=== PATIENT | male | born 1980 | race Caucasian/White ===

== ENCOUNTER → 2017-02-11 | Outpatient (CLI) | payer OTHER ==
--- NOTE | 2017-02-11 11:16 | MR ---
MR lumbar spine wo/w con low back pain MultiHance Multiplanar, multiecho imaging of the lumbar spine was obtained without contrast on a 3 Emilee magnet. REFERENCE: Report but no images of the previous study dated 11/14/2005. FINDINGS: Paraspinal soft tissues are normal. Vertebral body height and alignment are maintained. Cord signal is maintained. The conus ends normall y at the level of the superior endplate of L2. From T12-L1 through to L2-3, no definite abnormality is seen. At L3-4, there is mild capsulitis within the facets. At L4-5, there is disc space loss and disc desiccation. There is a diffuse disc displacement. The int ervertebral foramina are well maintained. There is mild hypertrophic change and capsulitis in the fac ets. At L5-S1, there is severe disc space loss. There is a broad-based disc protrusion extending into the intervertebral foramina bilaterally causing mild, bilateral intervertebral foraminal narrowing, great er on the right than the left. There is minimal capsulitis within the facets. IMPRESSION: 1. DEGENERATIVE DISC DISEASE, L4-5 AND L5-S1. 2. FACET ARTHROPATHY, L4-5 AND L5-S1. 3. MILD, BILATERAL INTERVERTEBRAL FORAMINAL NARROWING, L5-S1. 4. BROAD-BASED DISC PROTRUSION, L5-S1 WITHOUT DEFINITE NEURAL COMPRESSION.
== END | disposition home or self-care (01) ==
LOC: RADMRIMAIN 10:01
PROVIDERS: ATTEND Physician Assistant
DX: M99.73 Connective tissue and disc stenosis of intervertebral foramina of lumbar region (principal); M51.27 Other intervertebral disc displacement, lumbosacral region; M51.37 Other intervertebral disc degeneration, lumbosacral region; M46.97 Unspecified inflammatory spondylopathy, lumbosacral region
CPT/HCPCS: 72158; A9577

== ENCOUNTER 2017-07-11 14:23 | Emergency (ER) | payer OTHER ==
[2017-07-11] MEDS ORDERED: ONDANSETRON 4 MG/2 ML VIAL IVP STA (15:01)
[2017-07-11] MEDS ORDERED: SODIUM CHLORIDE 0.9% 1,000 ML IV STA (15:01)
[2017-07-11] MEDS ORDERED: HYDROmorphone 1 MG/ML 1 ML SYRINGE IVP STA (15:01)
--- NOTE | 2017-07-11 15:06 | ED ---
General Adult HPI - General Chief complaint: Nausea/Vomiting/Diarrhea Stated complaint: lumbar fusion pain Time Seen by Provider: 07/11/17 14:37 Source: patient, RN notes reviewed Mode of arrival: ambulatory Limitations: no limitations - History of Present Illness Initial comments: Patient 36-year-old male status post spinal fusion 4 days, who presents emergency room today with a chief complaint of symptoms of nausea vomiting and pain over the last 4 days. Does admit that he's also noticed some drainage coming from the incision site over the past 4 days. They admit to feeling nauseated. States had an episode of vomiting today. States that as of numbness tingling right lower leg. States this is same symptoms and is expressing prior to surgery. He denies any bowel or bladder incontinence or retention. He denies any saddle anesthesia. Patient denies any recent fever, chills, shortness of breath, chest pain, abdominal pain, nausea or vomiting, numbness or tingling, dysuria or hematuria, constipation or diarrhea, headaches or visual changes, or any other complaints. - Related Data Home Medications Medication Instructions Recorded Confirmed Acetaminophen Tab [Tylenol Tab] 325 mg PO ONCE PRN 07/11/17 07/11/17 Cyclobenzaprine [Flexeril] 10 mg PO TID 07/11/17 07/11/17 Diazepam [Valium] 5 mg PO QID PRN 07/11/17 07/11/17 Morphine Sulfate ER [Ms Contin 30 mg PO Q8H 07/11/17 07/11/17 30Mg] Morphine Sulfate Ir [Msir] 15 - 30 mg PO TID PRN 07/11/17 07/11/17 hydrOXYzine HCL 25 mg PO BID 07/11/17 07/11/17 Previous Rx's Medication Instructions Recorded oxyCODONE-APAP 10-325MG [Percocet 10 mg PO Q6H PRN #120 tab 03/04/15 10-325 mg] Ondansetron Odt [Zofran ODT] 4 mg PO Q8HR PRN #20 tab 07/11/17 Allergies Allergy/AdvReac Type Severity Reaction Status Date / Time No Known Allergies Allergy Verified 07/11/17 14:46 Review of Systems ROS Statement: Those systems with pertinent positive or pertinent negative responses have been documented in the HPI. ROS Other: All systems not noted in ROS Statement are negative. Past Medical History Past Medical History: Musculoskeletal Disorder, Seizure Disorder Additional Past Medical History / Comment(s): Post traumatic stress disorder, STATES SEIZURES ARE BEHIND THE EYES -NO MEDS FOR THIS , DDD-BACK PAIN. History of Any Multi-Drug Resistant Organisms: None Reported Past Surgical History: No Surgical Hx Reported Additional Past Surgical History / Comment(s): PAIN CLINIC PROCEDURES Past Anesthesia/Blood Transfusion Reactions: No Reported Reaction Past Psychological History: PTSD Smoking Status: Heavy tobacco smoker Past Alcohol Use History: None Reported Past Drug Use History: None Reported - Past Family History Mother Family Medical History: Cancer General Exam - General Exam Comments Initial Comments: General: The patient is awake and alert, in no distress, and does not appear acutely ill. Eye: Pupils are equal, round and reactive to light, extra-ocular movements are intact. No nystagmus. There is normal conjunctiva bilaterally. No signs of icterus. Ears, nose, mouth and throat: There are moist mucous membranes and no oral lesions. Neck: The neck is supple, there is no tenderness or JVD. Cardiovascular: There is a regular rate and rhythm. No murmur, rub or gallop is appreciated. Respiratory: Lungs are clear to auscultation, respirations are non-labored, breath sounds are equal. No wheezes, stridor, rales, or rhonchi. Gastrointestinal: Soft, non-distended, non-tender abdomen without masses or organomegaly noted. There is no rebound or guarding present. No CVA tenderness. Bowel sounds are unremarkable. Musculoskeletal: Patient shows good range of motion. Sensation intact to light touch bilaterally. He does admit that it feels somewhat numb. Pulses equal bilaterally 2+. Strength 5/5. Pulses equal bilaterally 2+. Neurological: A&O x 3. CN II-XII intact, There are no obvious motor or sensory deficits. Coordination appears grossly intact. Speech is normal. Skin: Incision site seems to be healing well. No redness or swelling. There is a serous sanguinous type drainage on the dressing but none coming from the incision site at this time. Psychiatric: Cooperative, appropriate mood & affect, normal judgment. Limitations: no limitations Course Vital Signs 07/11/17 07/11/17 14:31 17:12 Temperature 98.4 F 98.3 F Pulse Rate 98 97 Respiratory 18 16 Rate Blood Pressure 129/77 126/73 O2 Sat by Pulse 100 100 Oximetry Medical Decision Making - Medical Decision Making Case discussed in detail with attending physician Dr. Valderrama. Patient reexamined at this time shows no signs of distress resting comfortably. Patient labs reviewed are unremarkable. No sign of infection. No fever. Patient denies any new complaints of numbness or tingling to the lower extremities. States this is from prior to the surgery. Patient will be discharged home advised follow-up with his surgeon tomorrow. Advised return if any symptoms increase or worsen or for any other concerns. Plan discussed with the patient is states understanding and is in agreement. - Lab Data Result diagrams: 07/11/17 15:14 07/11/17 15:14 Lab Results 07/11/17 07/11/17 07/11/17 Range/Units 15:14 15:14 16:50 WBC 10.4 (3.8-10.6) k/uL RBC 3.92 L (4.30-5.90) m/uL Hgb 12.7 L (13.0-17.5) gm/dL Hct 36.4 L (39.0-53.0) % MCV 92.7 (80.0-100.0) fL MCH 32.5 (25.0-35.0) pg MCHC 35.0 (31.0-37.0) g/dL RDW 12.7 (11.5-15.5) % Plt Count 234 (150-450) k/uL Neutrophils % 66 % Lymphocytes % 23 % Monocytes % 7 % Eosinophils % 1 % Basophils % 1 % Neutrophils # 6.9 (1.3-7.7) k/uL Lymphocytes # 2.4 (1.0-4.8) k/uL Monocytes # 0.7 (0-1.0) k/uL Eosinophils # 0.2 (0-0.7) k/uL Basophils # 0.1 (0-0.2) k/uL Sodium 138 (137-145) mmol/L Potassium 3.6 (3.5-5.1) mmol/L Chloride 100 (98-107) mmol/L Carbon Dioxide 28 (22-30) mmol/L Anion Gap 10 mmol/L BUN 8 L (9-20) mg/dL Creatinine 0.72 (0.66-1.25) mg/dL Est GFR (MDRD) Af Amer >60 (>60 ml/min/1.73 sqM) Est GFR (MDRD) Non-Af >60 (>60 ml/min/1.73 sqM) Glucose 103 H (74-99) mg/dL Calcium 9.0 (8.4-10.2) mg/dL Total Bilirubin 0.9 (0.2-1.3) mg/dL AST 21 (17-59) U/L ALT 34 (21-72) U/L Alkaline Phosphatase 60 (38-126) U/L Total Protein 6.2 L (6.3-8.2) g/dL Albumin 3.8 (3.5-5.0) g/dL Urine Color Yellow Urine Appearance Clear (Clear) Urine pH 5.5 (5.0-8.0) Ur Specific [place] 1.006 (1.001-1.035) Urine Protein Negative (Negative) Urine Glucose (UA) Negative (Negative) Urine Ketones Negative (Negative) Urine Blood Negative (Negative) Urine Nitrite Negative (Negative) Urine Bilirubin Negative (Negative) Urine Urobilinogen <2.0 (<2.0) mg/dL Ur Leukocyte Esterase Negative (Negative) Disposition Clinical Impression: Postop check Disposition: HOME SELF-CARE Condition: Good Instructions: Acute Nausea and Vomiting (ED) Additional Instructions: Please use medication as discussed. Please follow-up with her surgeon tomorrow. Please return to emergency room if the symptoms increase or worsen or for any other concerns. Prescriptions: Ondansetron Odt [Zofran ODT] 4 mg PO Q8HR PRN #20 tab PRN Reason: Nausea Referrals: Eris Martell DO [Primary Care Provider] - 1-2 days Sylvain Alvarez MD [REFERRING] - 1-2 days Time of Disposition: 17:22
[2017-07-11 15:26] LABS: Basophils # (A) 0.1 k/uL (0-0.2); Basophils % (A) 1 %; CHCM 36.8; Eosinophils # (A) 0.2 k/uL (0-0.7); Eosinophils % (A) 1 %; HCT 36.4 % (39.0-53.0); HGB 12.7 gm/dL (13.0-17.5); Luc % (Auto) 2; Lymphocytes # (A) 2.4 k/uL (1.0-4.8); Lymphocytes % (A) 23 %; MCH 32.5 pg (25.0-35.0); MCV 92.7 fL (80.0-100.0); Mean Platelet Volume 8.2; Monocytes # (A) 0.7 k/uL (0-1.0); Monocytes % (A) 7 %; Neutrophils # (A) 6.9 k/uL (1.3-7.7); Neutrophils % (A) 66 %; RBC 3.92 m/uL (4.30-5.90); RDW 12.7 % (11.5-15.5); WBC 10.4 k/uL (3.8-10.6); WBC (Perox) 10.36
[2017-07-11 15:37] LABS: ALT 34 U/L (21-72); AST 21 U/L (17-59); Alkaline Phosphatase 60 U/L (38-126); Anion Gap 10 mmol/L; Blood Urea Nitrogen 8 mg/dL (9-20); Carbon Dioxide 28 mmol/L (22-30); Chloride 100 mmol/L (98-107); Glucose 103 mg/dL (74-99); Non-African American GFR(MDRD) >60 (>60 ml/min/1.73 sqM); Potassium 3.6 mmol/L (3.5-5.1); Sodium 138 mmol/L (137-145); Total Bilirubin 0.9 mg/dL (0.2-1.3); Total Protein 6.2 g/dL (6.3-8.2)
[2017-07-11 16:57] LABS: Appearance,Urine Clear (Clear); Bilirubin,Urine Negative (Negative); Glucose,Urine (UA) Negative (Negative); Ketones,Urine Negative (Negative); Leukocyte Esterase,Urine Negative (Negative); Nitrite,Urine Negative (Negative); PH, Urine 5.5 (5.0-8.0); Protein,Urine Negative (Negative); Specific Gravity,Urine 1.006 (1.001-1.035); UA Billing (MACRO vs. MICRO) CHEM; Urobilinogen,Urine <2.0 mg/dL (<2.0)
[2017-07-11 17:14] VITALS: BP 126/73; PULSE 97; RESP 16; TEMP 98.3
[2017-07-11] MEDS ORDERED: MORPHINE SULFATE 4 MG/ML SYRINGE IV STA (17:39)
== END 2017-07-11 17:49 | disposition home or self-care (01) ==
LOC: EC 14:23
DX: Z47.89 Encounter for other orthopedic aftercare (principal); R11.2 Nausea with vomiting, unspecified; M54.5 Low back pain; R20.0 Anesthesia of skin; R20.2 Paresthesia of skin; F17.200 Nicotine dependence, unspecified, uncomplicated; Z79.891 Long term (current) use of opiate analgesic; Z79.899 Other long term (current) drug therapy
CPT/HCPCS: 99283 ×2; 96374 ×2; 96375 ×3; 96361 ×2; 36415; 80053; 85025; 81003; 87040; J2270; J2405; J1170

== ENCOUNTER → 2018-03-15 | Outpatient (CLI) | payer OTHER ==
--- NOTE | 2018-03-15 11:51 | MR ---
EXAMINATION TYPE: MR lumbar spine wo/w con DATE OF EXAM: 03/15/2018 11:25 AM COMPARISON: 02/11/2017 HISTORY: Chronic Grey Low Back Pain With Grey Sciatica CONTRAST: The patient was injected with 7.5 mL intravenous Gadavist gadolinium contrast. Multiplanar, MultiSpin echo imaging of the lumbar spine was performed. L1-L2: Normal disc appearance without desiccation. No herniation, protrusion or disc bulging. No ca nal stenosis is present. Foramina are patent bilaterally. L2-L3: Normal disc appearance without desiccation. No herniation, protrusion or disc bulging. No ca nal stenosis is present. Foramina are patent bilaterally. L3-L4: Normal disc appearance without desiccation. No herniation, protrusion or disc bulging. No ca nal stenosis is present. Foramina are patent bilaterally. L4-L5: Moderate disc desiccation. Right paracentral mild disc protrusion results in mild effacement v entral thecal sac. Mild right foraminal encroachment. No evidence for central stenosis. L5-S1: Interval postoperative change with intervertebral body spacer and resultant artifact. Spacer a ppears to extend beyond the posterior margin of the disc space. There may be result in left lateral r ecess stenosis. Correlate clinically. Lumbar segments are intact. No paraspinal masses are identified. Conus medullaris has a normal appe arance. No pathologic enhancement. IMPRESSION: 1. Postoperative changes at L5-S1. Intervertebral spacer appears to extend beyond the confines of the posterior disc space posterocentrally and towards the left. There may be resultant left lateral rece ss stenosis. Artifact limits evaluation. 2. Mild disc protrusion L4-5 as discussed.
== END | disposition home or self-care (01) ==
LOC: RADMRIMAIN 10:38
PROVIDERS: ATTEND Orthopaedic Surgery
DX: M51.16 Intervertebral disc disorders with radiculopathy, lumbar region (principal); Z98.890 Other specified postprocedural states
CPT/HCPCS: 72158; A9581

== ENCOUNTER → 2018-03-22 | Day surgery (SDC) | payer OTHER ==
[~2018-03-22] MED LIST: DIAZEPAM 5 MG TAB PO STA; MORPHINE SULFATE IR 15 MG TABLET PO ONE; PREMYELOGRAM MEDICATION REVIEW 1 EACH MISC PO NR
[2018-03-22 08:40] VITALS: TEMP 98.2
[2018-03-22 09:23] VITALS: RESP 16
--- NOTE | 2018-03-22 11:04 | CT ---
EXAMINATION TYPE: CT lumbar myelogram DATE OF EXAM: 03/22/2018 COMPARISON: MRI 03/15/2018 HISTORY: 37-year-old male Lumbago with sciatica TECHNIQUE: Contiguous axial scanning of the lumbar spine performed after administration of intratheca l contrast. Please refer to myelogram injection report of the same day for further details. Coronal/s agittal reconstructions performed. CT DLP: 917 mGycm Automated exposure control for dose reduction was used. FINDINGS: No prevertebral or paravertebral soft tissue abnormality seen. Diffuse disc bulge at L4-L5 causing minimal bilateral inferior neuroforaminal narrowing. No significa nt spinal canal stenosis. Conus medullaris terminates at L1-L2. Vertebral body heights are preserved and alignment is maintaine d. Interbody device is present at L5-S1. No periprosthetic lucency. The device only minimally projects b ehind the posterior vertebral body margin by a millimeter or 2. No james retropulsion into the spinal canal. Eccentric left-sided positioning may be due to surgical technique. The interbody device does not abut the traversing left S1 nerve root or extend into the lateral recess. There are corresponding laminectomies at L5 and S1. From T12 through L4 levels, no significant spinal canal or neuroforaminal stenosis. At L4-L5, minimal inferior foraminal narrowing on both sides secondary to bulging disc. Prominent pos terior annular fissure was noted on the 03/15/2018 MRI. At L5-S1, there are moderate bilateral neuroforaminal stenoses with endplate spurring abutting the ex iting L5 nerve roots on both sides. No prevertebral or paravertebral soft tissue abnormality seen. IMPRESSION: 1. L5-S1 INTERBODY FUSION DEVICE. Slight eccentric leftward positioning is suspected to be due to horacio gical technique. The device projects only minimally behind the posterior vertebral body margin by a m illimeter or two. No james retropulsion. No significant periprosthetic lucency to suggest loosening. The device does not impinge any of the exiting or traversing nerve roots. 2. Endplate spurring at L5-S1 contributes to moderate bilateral neuroforaminal stenosis with bony spu rs abutting the exiting L5 nerve roots. 3. Diffuse disc bulge at L4-L5. A prominent posterior annular fissure was better seen on the patient' s recent MRI. The disc bulge contributes to minimal bilateral inferior foraminal narrowing. 4. No canal compromise. The remaining levels appear satisfactory.
--- NOTE | 2018-03-22 11:11 | FL ---
PROCEDURE: Lumbar puncture. DATE: 03/22/2018 CLINICAL HISTORY: 37-year-old male with lumbago and sciatica. Patient with lumbar fusion surgery in [facility] 2017. Long history of lumbar pain after injury in the service. COMPLICATIONS: None SEDATION: 10 mg oral Valium. The patient and the patient's vital signs were monitored by qualified independent radiology personnel. TECHNIQUE: The procedure and potential risks were explained to patient and an informed consent was obtained with teach back. Site and side was verified. A time out was performed. Fluoroscopy time: 53 seconds Total images: 8 The patient was placed prone on the fluoroscopy table and the L3-L4 level was localized and the skin was marked and was prepped and draped in the usual sterile fashion. Lidocaine was used for local anesthesia. Utilizing fluoroscopic guidance a 22-gauge spinal needle was placed through the skin and into the subarachnoid space. Clear CSF was visualized through the needle hub. Following this, 10 mL of Omnipaque 240 was injected into the thecal sac without difficulty. The needle was withdrawn, hemostasis obtained, and a dressing placed. There is free movement of contrast within the thecal sac. There is L5 laminectomy changes as well as an L5-S1 interbody device. The patient tolerated the procedure well and was sent for the CT portion of the exam. The estimated blood loss was minimal. The patient's condition was unchanged following the procedure. IMPRESSION: Successful lumbar puncture for CT myelogram.
[2018-03-22 13:32] VITALS: BP 128/80; PULSE 78
== END ==
LOC: RADPROMAIN 08:00
PROVIDERS: ATTEND Orthopaedic Surgery
DX: M54.42 Lumbago with sciatica, left side (principal); M54.41 Lumbago with sciatica, right side; Z98.1 Arthrodesis status
CPT/HCPCS: 62304; 72132; Q9966

== ENCOUNTER 2018-04-07 09:14 | Emergency (ER) | payer OTHER ==
[2018-04-07 09:30] VITALS: TEMP 98.1
[2018-04-07] MEDS ORDERED: PROPARACAINE 0.5% OPHTH DROPS 15 ML BTL BOTH EYES STA (09:39)
--- NOTE | 2018-04-07 10:31 | ED ---
Eye Problem HPI - General Chief complaint: Eye Problems Stated complaint: FB in eye Time Seen by Provider: 04/07/18 09:38 Source: patient, RN notes reviewed, old records reviewed Mode of arrival: ambulatory Limitations: no limitations - History of Present Illness Initial comments: This is a 37-year-old male presents emergency room chief complaint of foreign body of the left eye. He reports that he was in urgent care yesterday and diagnosed with a sinus infection. He reports he is placed on antibiotics. He states that he thinks that he may have recent hair or something within his eye today. He states he woke up and is a sharp pain at the 11 o'clock position. Patient reports that he has had no change in visual acuity. No pain with extraocular eye movements. Denies any eye pain or swelling. He reports that his eyes had an external upper eyelid hordeolum. He is followed up with ophthalmology regards to this in the past. - Related Data Home Medications Medication Instructions Recorded Confirmed Cyclobenzaprine [Flexeril] 10 mg PO TID 07/11/17 04/07/18 Morphine Sulfate Ir [Msir] 15 mg PO TID PRN 07/11/17 04/07/18 Gabapentin 600 mg PO TID 03/22/18 04/07/18 Amoxic-Pot Clav 875-125Mg 1 tab PO Q12HR 04/07/18 04/07/18 [Augmentin 875-125] Morphine Sulfate ER [Ms Contin 15 mg PO TID 04/07/18 04/07/18 15Mg] Previous Rx's Medication Instructions Recorded Erythromycin Ophth Oint (Ped) 1 applic BOTH EYES QID #1 tube 04/07/18 [Ilotycin Ophth Oint (Ped)] Allergies Allergy/AdvReac Type Severity Reaction Status Date / Time No Known Allergies Allergy Verified 04/07/18 09:41 Review of Systems ROS Statement: Those systems with pertinent positive or pertinent negative responses have been documented in the HPI. ROS Other: All systems not noted in ROS Statement are negative. Past Medical History Past Medical History: Musculoskeletal Disorder, Seizure Disorder Additional Past Medical History / Comment(s): Post traumatic stress disorder, STATES SEIZURES ARE BEHIND THE EYES -NO MEDS FOR THIS , DDD-BACK PAIN. Back surgery L5-S1 spacer and fusion, continues to have pain involving lowwer back and both legs. History of Any Multi-Drug Resistant Organisms: None Reported Past Surgical History: No Surgical Hx Reported Additional Past Surgical History / Comment(s): PAIN CLINIC PROCEDURES 2014. LUMBAR MYELOGRAM 2018 Past Anesthesia/Blood Transfusion Reactions: No Reported Reaction Past Psychological History: PTSD Smoking Status: Current every day smoker Past Alcohol Use History: None Reported Past Drug Use History: None Reported - Past Family History Mother Family Medical History: Cancer General Exam - General Exam Comments Initial Comments: 37-year-old male. Alert and oriented. No acute distress. Limitations: no limitations General appearance: alert, in no apparent distress Head exam: Present: atraumatic, normocephalic, normal inspection Eye exam: Present: normal appearance, PERRL, EOMI. Absent: scleral icterus, conjunctival injection, periorbital swelling ENT exam: Present: normal exam, mucous membranes moist, other (coroneal abrasion at the 11 o'clock position. No evidence of foreign body.) Neck exam: Present: normal inspection. Absent: tenderness, meningismus, lymphadenopathy Respiratory exam: Present: normal lung sounds bilaterally. Absent: respiratory distress, wheezes, rales, rhonchi, stridor Cardiovascular Exam: Present: regular rate, normal rhythm, normal heart sounds. Absent: systolic murmur, diastolic murmur, rubs, gallop, clicks GI/Abdominal exam: Present: soft, normal bowel sounds. Absent: distended, tenderness, guarding, rebound, rigid Extremities exam: Present: normal inspection, full ROM, normal capillary refill. Absent: tenderness, pedal edema, joint swelling, calf tenderness Back exam: Present: normal inspection Neurological exam: Present: alert, oriented X3, CN II-XII intact Psychiatric exam: Present: normal affect, normal mood Course Vital Signs 04/07/18 04/07/18 09:28 11:30 Temperature 98.1 F 98.1 F Pulse Rate 93 86 Respiratory 20 16 Rate Blood Pressure 140/94 134/86 O2 Sat by Pulse 100 100 Oximetry Medical Decision Making - Medical Decision Making 37-year-old male presents to the emergency department questionable foreign body within the eye. I examine the eye and fluorescein stain. There is evidence of a corneal abrasion along opposition. No significant foreign body retainment. A did do use the [place] brush and try to see if I could remove something near the corneal abrasion. Patient tolerated the procedure well. Discussed that we' ll put the patient on erythromycin eye ointment. He was following up with ophthalmology tomorrow. All questions answered and return parameters were discussed. Disposition Clinical Impression: Corneal abrasion Disposition: HOME SELF-CARE Condition: Good Instructions: Stye (ED), Corneal Abrasion (ED) Additional Instructions: The eye ointment every 4 hours. Follow-up with ophthalmology if symptoms persist. Prescriptions: Erythromycin Ophth Oint (Ped) [Ilotycin Ophth Oint (Ped)] 1 applic BOTH EYES QID #1 tube Is patient prescribed a controlled substance at d/c from ED?: No If prescribed controlled substance>3 days was MAPS reviewed?: No When asked, does pt state using other controlled substances?: No Referrals: [facility],Clinic [Primary Care Provider] - 1-2 days Time of Disposition: 10:30
[2018-04-07] MEDS ORDERED: ERYTHROMYCIN 5 MG/GM OPHTH OINT 3.5 GM TUBE BOTH EYES STA (11:14)
[2018-04-07 11:31] VITALS: BP 134/86; PULSE 86; RESP 16
[2018-04-07] MEDS ORDERED: ERYTHROMYCIN 5 MG/GM OPHTH OINT 3.5 GM TUBE BOTH EYES SCH (12:00)
== END 2018-04-07 11:30 | disposition home or self-care (01) ==
LOC: EC 09:14
DX: S05.02XA Injury of conjunctiva and corneal abrasion without foreign body, left eye, initial encounter (principal); G40.909 Epilepsy, unspecified, not intractable, without status epilepticus; F17.200 Nicotine dependence, unspecified, uncomplicated; Z79.891 Long term (current) use of opiate analgesic; Z79.899 Other long term (current) drug therapy
CPT/HCPCS: 99283

== ENCOUNTER 2018-04-09 14:59 | Emergency (ER) | payer OTHER ==
[2018-04-09 15:09] VITALS: BP 137/89; PULSE 100; RESP 20; TEMP 98.3
[2018-04-09] MEDS ORDERED: PROPARACAINE 0.5% OPHTH DROPS 15 ML BTL LEFT EYE STA (15:36)
--- NOTE | 2018-04-09 16:28 | ED ---
Eye Problem HPI - General Chief complaint: Eye Problems Stated complaint: Swollen Eye Recheck Time Seen by Provider: 04/09/18 15:23 Source: patient, RN notes reviewed Mode of arrival: ambulatory Limitations: no limitations - History of Present Illness Initial comments: This is a 37-year-old male who presents to the emergency department for recheck of left eye redness and swelling. Patient states that he was seen here on with complaint of foreign body in his left eye. He states that a foreign body was removed and he was started on erythromycin ointment. He states that he has been using the ointment daily. He states that he was supposed to follow up with ophthalmology but he never called them. He now presents to the emergency department with complaint of increased pain and swelling to his left eye. He also complains of blurred vision. He states he has difficulty opening his eye. Denies fever, chills, chest pain, shortness of breath, abdominal pain, nausea or vomiting, numbness or tingling or headache. - Related Data Home Medications Medication Instructions Recorded Confirmed Cyclobenzaprine [Flexeril] 10 mg PO TID 07/11/17 04/07/18 Morphine Sulfate Ir [Msir] 15 mg PO TID PRN 07/11/17 04/07/18 Gabapentin 600 mg PO TID 03/22/18 04/07/18 Amoxic-Pot Clav 875-125Mg 1 tab PO Q12HR 04/07/18 04/07/18 [Augmentin 875-125] Morphine Sulfate ER [Ms Contin 15 mg PO TID 04/07/18 04/07/18 15Mg] Previous Rx's Medication Instructions Recorded Erythromycin Ophth Oint (Ped) 1 applic BOTH EYES QID #1 tube 04/07/18 [Ilotycin Ophth Oint (Ped)] Allergies Allergy/AdvReac Type Severity Reaction Status Date / Time No Known Allergies Allergy Verified 04/09/18 15:09 Review of Systems ROS Statement: Those systems with pertinent positive or pertinent negative responses have been documented in the HPI. ROS Other: All systems not noted in ROS Statement are negative. Past Medical History Past Medical History: Musculoskeletal Disorder, Seizure Disorder Additional Past Medical History / Comment(s): Post traumatic stress disorder, STATES SEIZURES ARE BEHIND THE EYES -NO MEDS FOR THIS , DDD-BACK PAIN. Back surgery L5-S1 spacer and fusion, continues to have pain involving lowwer back and both legs. History of Any Multi-Drug Resistant Organisms: None Reported Past Surgical History: No Surgical Hx Reported Additional Past Surgical History / Comment(s): PAIN CLINIC PROCEDURES 2013. LUMBAR MYELOGRAM 2018 Past Anesthesia/Blood Transfusion Reactions: No Reported Reaction Past Psychological History: PTSD Smoking Status: Current every day smoker Past Alcohol Use History: None Reported Past Drug Use History: None Reported - Past Family History Mother Family Medical History: Cancer General Exam - General Exam Comments Initial Comments: General: Awake and alert, well-developed; in no apparent distress. HEENT: Head atraumatic, normocephalic. Pupils are equal, round and reactive to light. Extraocular movements intact. Conjunctiva of the left eye is severely injected. On fluorescein staining, there is dense uptake of fluorescein stain overlying the pupil and medial iris. Intraocular pressure is tender bilaterally. Oropharynx moist without erythema or exudate. Neck: Supple. Normal ROM. Cardiovascular: Regular rate and rhythm. No murmurs, rubs or gallops. Chest symmetrical. Respiratory: Lungs clear to auscultation bilaterally. No wheezes, rales or rhonchi. Normal respiratory effort with no use of accessory muscles. Musculoskeletal: Normal ROM, no tenderness bilateral upper and lower extremities. Ambulating normally. Skin: [place], warm and dry without rashes or lesions. Neurological: Alert and oriented x3. CN II-XII grossly intact. Speech is fluent and answers are appropriate. No focal neuro deficits. Psychiatric: Normal mood and affect. No overt signs of depression or anxiety noted. Limitations: no limitations Course Vital Signs 04/09/18 15:08 Temperature 98.3 F Pulse Rate 100 Respiratory 20 Rate Blood Pressure 137/89 O2 Sat by Pulse 99 Oximetry Medical Decision Making - Medical Decision Making This is a 37-year-old male who presents to the emergency department with chief complaint of left eye pain and redness. Patient was evaluated 2 days ago and diagnosed with a foreign body. Patient was supposed to follow up with ophthalmology but has yet to do so. He complains of increased pain, swelling and blurred vision. Patient was reexamined. Left conjunctiva is extremely injected. Upper eyelid is slightly swollen. Patient complains of pain and blurred vision. On fluorescein staining, there is what appears to be a corneal ulcer overlying the pupil and medial aspect of the iris. This case was discussed with attending physician, Dr. Crump. Recommended changing patient's erythromycin ointment to a different antibiotic. Patient will be started on tobramycin drops. I highly advised patient to follow up with ophthalmology on Wednesday. He is provided with this contact information. Risks of not following up were discussed with patient. Vital signs are stable and he is in no acute distress. He'll be discharged home at this time. Disposition Clinical Impression: Corneal ulcer Disposition: HOME SELF-CARE Condition: Good Instructions: Corneal Ulcer (ED), Tobramycin (Into the eye) Additional Instructions: Please follow-up with Dr. Ricci, ophthalmology first thing on Wednesday. Please apply 2 drops to the left eye every 4 hours until follow-up with ophthalmology. Please follow up with primary care provider within 1-2 days. Return to emergency department if symptoms should worsen or any concerns arise. Is patient prescribed a controlled substance at d/c from ED?: No Referrals: [facility],Clinic [Primary Care Provider] - 1-2 days Donaldo Ricci MD [STAFF PHYSICIAN] - 1-2 days Time of Disposition: 16:54
[2018-04-09] MEDS ORDERED: TOBRAMYCIN 0.3% OPHTH DROPS 5 ML BTL LEFT EYE STA (16:49)
== END 2018-04-09 17:10 | disposition home or self-care (01) ==
LOC: EC 14:59
DX: H16.002 Unspecified corneal ulcer, left eye (principal); G40.909 Epilepsy, unspecified, not intractable, without status epilepticus; F17.200 Nicotine dependence, unspecified, uncomplicated; Z79.891 Long term (current) use of opiate analgesic; Z79.899 Other long term (current) drug therapy; Z87.39 Personal history of other diseases of the musculoskeletal system and connective tissue
CPT/HCPCS: 99283

== ENCOUNTER → 2018-04-21 | Outpatient (CLI) | payer OTHER ==
--- NOTE | 2018-04-21 20:41 | ECHOF ---
Referral Reason:R60.9 Edema, unspecified MEASUREMENTS -------- HEIGHT: 177.8 cm WEIGHT: 79.4 kg BP: 133/79 RVIDd: 2.9 cm (< 3.3) IVSd: 0.9 cm (0.6 - 1.1) LVIDd: 4.3 cm (3.9 - 5.3) LVPWd: 1.1 cm (0.6 - 1.1) IVSs: 1.3 cm LVIDs: 2.8 cm LVPWs: 1.6 cm LA Diam: 3.3 cm (2.7 - 3.8) LAESV Index (A-L): 25.08 ml/m Ao Diam: 2.9 cm (2.0 - 3.7) AV Cusp: 2.3 cm (1.5 - 2.6) MV EXCURSION: 20.022 mm (> 18.000) MV EF SLOPE: 73 mm/s (70 - 150) EPSS: 0.3 cm MV E Vince: 0.74 m/s MV DecT: 197 ms MV A Vince: 0.66 m/s MV E/A Ratio: 1.12 RAP: 5.00 mmHg RVSP: 25.57 mmHg FINDINGS -------- Sinus rhythm. This was a technically good study. The left ventricular size is normal. Left ventricular wall thickness is normal. Overall left vent ricular systolic function is normal with, an EF between 60 - 65 %. The right ventricle is normal in size. Normal LA size by volume 22+/-6 ml/m2. The right atrial size is normal. The aortic valve is trileaflet and appears structurally normal. Normal appearing mitral valve. No mitral regurgitation. Mild tricuspid regurgitation present. Right ventricular systolic pressure is normal at < 35 mmHg. Trace/mild (physiologic) pulmonic regurgitation. The aortic root size is normal. Normal inferior vena cava with normal inspiratory collapse consistent with estimated right atrial pre ssure of 5 mmHg. There is no pericardial effusion. CONCLUSIONS -------- 1. Sinus rhythm. 2. This was a technically good study. 3. The left ventricular size is normal. 4. Left ventricular wall thickness is normal. 5. Overall left ventricular systolic function is normal with, an EF between 60 - 65 %. 6. Normal LA size by volume 22+/-6 ml/m2. 7. The aortic valve is trileaflet and appears structurally normal. 8. Normal appearing mitral valve. 9. Mild tricuspid regurgitation present. 10. Right ventricular systolic pressure is normal at < 35 mmHg. 11. Trace/mild (physiologic) pulmonic regurgitation. 12. The aortic root size is normal. 13. Normal inferior vena cava with normal inspiratory collapse consistent with estimated right atrial pressure of 5 mmHg. 14. There is no pericardial effusion. [employer]: Rhonda Chinchilla RDCS
== END | disposition home or self-care (01) ==
LOC: RADECHMAIN 16:00
PROVIDERS: ATTEND Internal Medicine
DX: I07.1 Rheumatic tricuspid insufficiency (principal)
CPT/HCPCS: 93306

== ENCOUNTER 2020-07-15 23:31 | Emergency (ER) | payer OTHER ==
[2020-07-15 23:38] VITALS: RESP 18
--- NOTE | 2020-07-15 23:42 | ED ---
Abdominal Pain HPI - General Chief Complaint: Abdominal Pain Stated Complaint: lower back pain, nausea, abd Time Seen by Provider: 07/15/20 23:40 Source: patient Mode of arrival: ambulatory Limitations: no limitations - History of Present Illness Initial Comments: Jose is a 39-year-old male past medical history of chronic pain secondary to back injury. Patient presents the ER today for evaluation of a sudden onset of right-sided flank pain with associated nausea and vomiting. Patient reports he took his usually scheduled morphine at around 6 or 6:30 PM. Around 10:30 PM he was sitting in his garage smoking when he had a sudden stabbing pain in his right flank. Pain was severe in nature, patient couldn't find a comfortable position or any relieving factors the pain. Made him nauseated and he had a single episode of vomiting. Patient denies any history of similar pain or history of kidney stones. He states that he was able to urinate once before coming to the hospital and noted that it was dark but didn't know if there was any obvious blood. - Related Data Home Medications Medication Instructions Recorded Confirmed Cyclobenzaprine [Flexeril] 10 mg PO TID 07/11/17 04/07/18 Morphine Sulfate Ir [Msir] 15 mg PO TID PRN 07/11/17 04/07/18 Gabapentin 600 mg PO TID 03/22/18 04/07/18 Amoxic-Pot Clav 875-125Mg 1 tab PO Q12HR 04/07/18 04/07/18 [Augmentin 875-125] Morphine Sulfate ER [Ms Contin 15 mg PO TID 04/07/18 04/07/18 15Mg] Previous Rx's Medication Instructions Recorded Erythromycin Ophth Oint (1 gm) 1 applic BOTH EYES QID #1 tube 04/07/18 [Ilotycin Ophth Oint (1 gm)] Allergies Allergy/AdvReac Type Severity Reaction Status Date / Time No Known Allergies Allergy Verified 07/15/20 23:38 Review of Systems ROS Statement: Those systems with pertinent positive or pertinent negative responses have been documented in the HPI. ROS Other: All systems not noted in ROS Statement are negative. Past Medical History Past Medical History: Musculoskeletal Disorder, Seizure Disorder Additional Past Medical History / Comment(s): Post traumatic stress disorder, STATES SEIZURES ARE BEHIND THE EYES -NO MEDS FOR THIS , DDD-BACK PAIN. Back surgery L5-S1 spacer and fusion, continues to have pain involving lowwer back and both legs. History of Any Multi-Drug Resistant Organisms: None Reported Past Surgical History: Back Surgery Additional Past Surgical History / Comment(s): PAIN CLINIC PROCEDURES 2014. LUMBAR MYELOGRAM 2018 Past Anesthesia/Blood Transfusion Reactions: No Reported Reaction Past Psychological History: PTSD Smoking Status: Current every day smoker Past Alcohol Use History: None Reported Past Drug Use History: None Reported - Past Family History Mother Family Medical History: Cancer General Exam - General Exam Comments Initial Comments: Physical Exam GENERAL: Patient is well-developed and well-nourished. Patient is nontoxic and well-hydrated and is in no distress. HENT: Normocephalic, Atraumatic. EYES: PERRL, EOMI PULMONARY: Unlabored respirations. CARDIOVASCULAR: RRR Warm and well perfused extremities ABDOMEN: Minimal pain to percussion of the right flank No pain to palpation of the abdomen, no McBurney's point tenderness, negative Edwards sign Abdomen is soft, Non-distended, normoactive bowel sounds No pulsatile mass or abdominal bruit SKIN: No rashes or bruising : Deferred NEUROLOGIC: Alert and oriented Normal speech Normal gait MUSCULOSKELETAL: Moving all extremities with no apparent injury Well-healed surgical scar over the lumbar spine PSYCHIATRIC: No SI/HI Limitations: no limitations Course Vital Signs 07/15/20 07/16/20 07/16/20 23:35 01:08 03:11 Temperature 99.3 F 98.2 F Pulse Rate 70 68 67 Respiratory 18 18 18 Rate Blood Pressure 166/104 127/92 139/109 O2 Sat by Pulse 100 97 98 Oximetry Medical Decision Making - Medical Decision Making The patient was seen and evaluated, history was obtained from patient Physical exam unremarkable, no rashes, minimal pain to palpation Tordol ordered for pain Labs with mild leukocytosis, UA unremarkable CT scan with no acute findings Results discussed with patient, advised pain can be due to muscle strain, pre- herpetic neuralgia with impending shingles or neuropathy from back injury. At this time patient is on maximum therapy for pain at home with oral morphine and gabapentin, patient is comfortable with the plan for discharge home Close return parameters were discussed with the patient patient was able to express understanding, all questions pertaining care were answered to the best of my ability and the patient was discharged home in stable condition - Lab Data Result diagrams: 07/16/20 00:09 07/16/20 00:09 Lab Results 07/16/20 07/16/20 07/16/20 Range/Units 00:09 00:09 00:09 WBC 12.1 H (3.8-10.6) k/uL RBC 4.43 (4.30-5.90) m/uL Hgb 13.8 (13.0-17.5) gm/dL Hct 40.4 (39.0-53.0) % MCV 91.3 (80.0-100.0) fL MCH 31.2 (25.0-35.0) pg MCHC 34.2 (31.0-37.0) g/dL RDW 12.1 (11.5-15.5) % Plt Count 242 (150-450) k/uL Neutrophils % 63 % Lymphocytes % 29 % Monocytes % 5 % Eosinophils % 1 % Basophils % 1 % Neutrophils # 7.6 (1.3-7.7) k/uL Lymphocytes # 3.6 (1.0-4.8) k/uL Monocytes # 0.7 (0-1.0) k/uL Eosinophils # 0.1 (0-0.7) k/uL Basophils # 0.1 (0-0.2) k/uL Sodium 139 (137-145) mmol/L Potassium 3.7 (3.5-5.1) mmol/L Chloride 104 (98-107) mmol/L Carbon Dioxide 27 (22-30) mmol/L Anion Gap 8 mmol/L BUN 16 (9-20) mg/dL Creatinine 0.81 (0.66-1.25) mg/dL Est GFR (CKD-EPI)AfAm >90 (>60 ml/min/1.73 sqM) Est GFR (CKD-EPI)NonAf >90 (>60 ml/min/1.73 sqM) Glucose 115 H (74-99) mg/dL Calcium 9.7 (8.4-10.2) mg/dL Total Bilirubin 1.1 (0.2-1.3) mg/dL AST 25 (17-59) U/L ALT 18 (4-49) U/L Alkaline Phosphatase 66 (38-126) U/L Total Protein 6.8 (6.3-8.2) g/dL Albumin 4.6 (3.5-5.0) g/dL Urine Color Yellow Urine Appearance Clear (Clear) Urine pH 5.0 (5.0-8.0) Ur Specific [place] 1.026 (1.001-1.035) Urine Protein 1+ H (Negative) Urine Glucose (UA) Negative (Negative) Urine Ketones Negative (Negative) Urine Blood Negative (Negative) Urine Nitrite Negative (Negative) Urine Bilirubin Negative (Negative) Urine Urobilinogen 2.0 (<2.0) mg/dL Ur Leukocyte Esterase Negative (Negative) Urine RBC 1 (0-5) /hpf Urine WBC 2 (0-5) /hpf Ur Squamous Epith Cells <1 (0-4) /hpf Hyaline Casts 12 H (0-2) /lpf Urine Mucus Moderate H (None) /hpf Disposition Clinical Impression: Flank pain Disposition: HOME SELF-CARE Condition: Stable Additional Instructions: As we discussed her computed tomography scan was negative for any signs of kidney stone, appendicitis or problem with her gallbladder or liver. However we cannot rule out muscle spasm, possibly neuropathy from development of shingles or nerve pain from your back. If you develop a rash she needed to be reevaluated immediately to be started on antivirals If he have persistent pain any to follow with her primary care doctor and back surgeon regarding your persistent pain Continue your pain medication regimen including oral morphine and gabapentin Return to the ER if you become worse. Is patient prescribed a controlled substance at d/c from ED?: No Referrals: Mario Mario DO [Primary Care Provider] - 1-2 days
[2020-07-15] MEDS ORDERED: SODIUM CHLORIDE 0.9% 1,000 ML IV STA (23:57)
[2020-07-15] MEDS ORDERED: KETOROLAC 15 MG/ML 1 ML VIAL IVP STA (23:57)
[2020-07-16 00:43] LABS: Basophils # (A) 0.1 k/uL (0-0.2); Basophils % (A) 1 %; Eosinophils # (A) 0.1 k/uL (0-0.7); Eosinophils % (A) 1 %; HCT 40.4 % (39.0-53.0); HGB 13.8 gm/dL (13.0-17.5); Lymphocytes # (A) 3.6 k/uL (1.0-4.8); Lymphocytes % (A) 29 %; MCH 31.2 pg (25.0-35.0); MCHC 34.2 g/dL (31.0-37.0); MCV 91.3 fL (80.0-100.0); Mean Platelet Volume 7.6; Monocytes # (A) 0.7 k/uL (0-1.0); Monocytes % (A) 5 %; Neutrophils # (A) 7.6 k/uL (1.3-7.7); Neutrophils % (A) 63 %; Platelet Count 242 k/uL (150-450); RBC 4.43 m/uL (4.30-5.90); RDW 12.1 % (11.5-15.5); WBC 12.1 k/uL (3.8-10.6)
[2020-07-16 00:50] LABS: Appearance,Urine Clear (Clear); Bilirubin,Urine Negative (Negative); Blood,Urine Negative (Negative); Color,Urine Yellow; Glucose,Urine (UA) Negative (Negative); Hyaline Casts,Urine 12 /lpf (0-2); Ketones,Urine Negative (Negative); Leukocyte Esterase,Urine Negative (Negative); Mucus,Urine Moderate /hpf; Nitrite,Urine Negative (Negative); Protein,Urine 1+ (Negative); RBC,Urine 1 /hpf (0-5); Specific Gravity,Urine 1.026 (1.001-1.035); Squamous Epithelial Cell,Urine <1 /hpf (0-4); WBC,Urine 2 /hpf (0-5)
[2020-07-16 00:55] LABS: ALT 18 U/L (4-49); AST 25 U/L (17-59); African American GFR (CKD) >90 (>60 ml/min/1.73 sqM); Albumin 4.6 g/dL (3.5-5.0); Alkaline Phosphatase 66 U/L (38-126); Anion Gap 8 mmol/L; Blood Urea Nitrogen 16 mg/dL (9-20); Calcium 9.7 mg/dL (8.4-10.2); Carbon Dioxide 27 mmol/L (22-30); Chloride 104 mmol/L (98-107); Glucose 115 mg/dL (74-99); Non-African American GFR(CKD) >90 (>60 ml/min/1.73 sqM); Potassium 3.7 mmol/L (3.5-5.1); Sodium 139 mmol/L (137-145); Total Bilirubin 1.1 mg/dL (0.2-1.3); Total Protein 6.8 g/dL (6.3-8.2)
--- NOTE | 2020-07-16 01:50 | CT ---
EXAMINATION TYPE: CT abdomen pelvis w con DATE OF EXAM: 07/16/2020 COMPARISON: None HISTORY: Right Flank Pain CT DLP: 896.30 mGycm Automated exposure control for dose reduction was used. CONTRAST: Performed with IV Contrast, patient injected with 100 mL of Isovue 300. Multiple axial sections were obtained from the diaphragm to the floor the pelvis with IV contrast. Lung bases are clear of consolidation. There is minimal subsegmental atelectasis right lung base. The re is no pleural effusion. Heart size is normal. Liver spleen stomach pancreas gallbladder appear normal. Bile ducts are not dilated. There is no adre nal mass. Kidneys show satisfactory contrast opacification. There is no hydronephrosis. Ureters are n ot dilated. There is no retroperitoneal adenopathy. Bladder distends smoothly. There is no inguinal h ernia. There is no free fluid in the pelvis. There is no mesenteric edema. There is no ascites or free air. There is no sign of a bowel obstructio n. Appendix measures up to 7 mm. I see no sign of inflammatory process. Distal ileum appears normal. There is no evidence of focal bone destruction. Lumbar vertebra have normal alignment. There is vacuu m disc at L5-S1. There is L5 laminectomy defect. The bony pelvis is intact. Hip joints are intact. Delayed images show normal renal excretion. IMPRESSION: No evidence of renal stone or obstruction. Appendix within normal limits.
[2020-07-16] MEDS ORDERED: ORPHENADRINE 30 MG/ML 2 ML VIAL IM STA ×2 (02:18→02:27)
[2020-07-16 03:13] VITALS: BP 139/109; PULSE 67; TEMP 98.2
== END 2020-07-16 03:13 | disposition home or self-care (01) ==
LOC: EC 23:31
DX: R10.9 Unspecified abdominal pain (principal); M54.5 Low back pain; R11.2 Nausea with vomiting, unspecified; D72.829 Elevated white blood cell count, unspecified; F17.200 Nicotine dependence, unspecified, uncomplicated; Z79.899 Other long term (current) drug therapy; Z98.1 Arthrodesis status
CPT/HCPCS: 36415; 80053; 85025; 81001; 74177; 99284; 96374; 96361; 96372; J2360; J1885; Q9967

== ENCOUNTER → 2020-10-11 | Outpatient (CLI) | payer OTHER | END | disposition home or self-care (01) | LOC: LABWHC1 10-08 13:48 | PROVIDERS: ATTEND Pathology Anatomic Pathology & Clinical Pathology | DX: Z53.9 Procedure and treatment not carried out, unspecified reason (principal) ==

== ENCOUNTER → 2021-02-13 | Outpatient (CLI) | payer OTHER ==
--- NOTE | 2021-02-13 12:09 | US ---
EXAMINATION TYPE: US thyroid st tissue head/neck DATE OF EXAM: 02/13/2021 COMPARISON: NONE CLINICAL HISTORY: R59.0 Localized enlarged lymph nodes. Patient states he feels a palpable posterior left neck- changes in size. Patient states he has soreness like a bruise anterior left neck- no palp able. No covid vaccine. Posterior left neck palpable- area of concern scanned. Lymph node visualized = 1.1 x 0.7 x 0.5 cm. Anterior left neck- area of concern scanned. Prominent lymph node seen = 1.6 x 1.3 x 0.8 cm. IMPRESSION: Lymph nodes as noted above.
== END | disposition home or self-care (01) ==
LOC: RADUSWWP 08:11
PROVIDERS: ATTEND Family Medicine
DX: R59.0 Localized enlarged lymph nodes (principal)
CPT/HCPCS: 76536

== ENCOUNTER → 2021-03-31 | Outpatient (CLI) | payer OTHER ==
--- NOTE | 2021-04-01 07:01 | US ---
EXAMINATION TYPE: US thyroid st tissue head/neck DATE OF EXAM: 03/31/2021 COMPARISON: NONE CLINICAL HISTORY: R59.0 Localized enlarged lymph nodes. patient was here a few weeks ago for palpable on the left posterior neck near hairline and new pain on the right neck Left = palpable near posterior hairline was 1.2 x 1.1 x 0.4cm normal appearing lymph node Right = at area of pain, normal appearing lymph node = 1.2 x 0.7 x 0.3cm IMPRESSION: 1. Small nonspecific 1.2 cm nodules and areas of palpable abnormality most likely related to small ly mph nodes.
== END | disposition home or self-care (01) ==
LOC: RADUSWWP 15:26
PROVIDERS: ATTEND Family Medicine
DX: R59.0 Localized enlarged lymph nodes (principal)
CPT/HCPCS: 76536

== ENCOUNTER → 2021-05-05 | Outpatient (CLI) | payer OTHER ==
--- NOTE | 2021-05-05 15:58 | US ---
EXAMINATION TYPE: US thyroid st tissue head/neck DATE OF EXAM: 05/05/2021 COMPARISON: 03/31/2021 CLINICAL HISTORY: E04.1 thyroid nodule. GLAND SIZE: Right Lobe: 4.9 x 1.9 x 1.7 cm Overall Parenchyma: homogenous Left Lobe: 5.1 x 1.5 x 1.6 cm Overall Parenchyma: homogeneous Isthmus Thickness: 0.3 cm NODULES RIGHT: # of nodules measured on right: 0 LEFT: # of nodules measured on left: 0 ISTHMUS: # of nodules measured in the isthmus: 0 Bilateral neck scanned, no evidence of lymphadenopathy. IMPRESSION: No definite solid nodules. 2017 ACR TI-RADS LEVEL: TR-RADS 1 - BENIGN: No FNA *Highest TI-RADS level nodule reported
== END | disposition home or self-care (01) ==
LOC: RADUSWWP 14:51
PROVIDERS: ATTEND Family Medicine
DX: E04.1 Nontoxic single thyroid nodule (principal)
CPT/HCPCS: 76536

== ENCOUNTER → 2021-08-01 | Outpatient (CLI) | payer OTHER ==
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
== END | disposition home or self-care (01) ==
LOC: RADMRIMAIN 15:26
PROVIDERS: ATTEND Physician Assistant
DX: M50.223 Other cervical disc displacement at C6-C7 level (principal); M99.71 Connective tissue and disc stenosis of intervertebral foramina of cervical region
CPT/HCPCS: 72141

== ENCOUNTER → 2021-12-15 | Outpatient (CLI) | payer MEDICARE ==
--- NOTE | 2021-12-15 14:15 | US ---
EXAMINATION TYPE: US soft tissue head/neck DATE OF EXAM: 12/15/2021 COMPARISON: EXAMINATION TYPE: US Soft tissue head/neck DATE OF EXAM: 12/15/2021 COMPARISON: Neck ultrasound February 13, 2021 CLINICAL HISTORY: R22.1 SWELLING,MASS,LUMP. Left posterior neck mass and Right neck pain Findings: Bilateral neck scanned with submandibular glands, Hypoechoic area seen in palpable posterior palpable area. Right neck scanned no mass seen at this time. Submandibular gland scanned, measuring 4.2 x 3.5 x 1.94 cm. Hypoechoic area seen within gland measuring 0.9 x 0.9 x 0.6cm Left neck scanned with hypoechoic area seen in Left posterior neck area of lump measuring 1.2 x 1.3 x 0.4cm. This is stable in size and appearance from January 2021 ultrasound favor benign lymph node. Submandibular gland scanned and measuring 3.8 x 3.1 x1.8cm IMPRESSION: Stable left posterior neck mass presumed benign lymph node. Nonspecific 9 mm lesion in the right submandibular gland could reflect benign lymph node. Other etiologies not excluded. Consid er contrast enhanced neck CT follow-up to further evaluate.
== END | disposition home or self-care (01) ==
LOC: RADUSWWP 13:27
PROVIDERS: ATTEND Otolaryngology
DX: R22.1 Localized swelling, mass and lump, neck (principal)
CPT/HCPCS: 76536

== ENCOUNTER → 2022-01-13 | Outpatient (CLI) | payer MEDICARE ==
--- NOTE | 2022-01-13 15:23 | CT ---
EXAMINATION TYPE: CT soft tissue neck w con DATE OF EXAM: 01/13/2022 1:58 PM COMPARISON: Ultrasound dated 12/15/2021 HISTORY: Neck pressure, abn US CT DLP: 805 mGycm Automated exposure control for dose reduction was used. CONTRAST: CT scan of the neck is performed following with IV Contrast, patient injected with 100 mL of Isovue 3 00. Axial images are obtained, coronal and sagittal reformatted images are reviewed. FINDINGS: Symmetrical unremarkable submandibular salivary glands with no definite lesion identified by this CT scan. The described 9 mm hypoechoic lesion in the right sublingual gland on the previous ultrasound c ould not be appreciated by this CT scan. Symmetrical unremarkable parotid glands demonstrating tiny l ymph nodes within. Unremarkable nasopharynx, oropharynx, hypopharynx, larynx and visualized portion o f the trachea and esophagus. Grossly unremarkable thyroid gland. Unremarkable bases of the tongue and floor of the mouth. Scattere d subcentimeter bilateral cervical lymph nodes, measuring up to 8mm in right level 2 group. No suspic ious or pathologically enlarged cervical lymph nodes. Subcentimeter upper mediastinal lymph nodes is also noted. Anterior mediastinal fat stranding, probably representing residual thymic tissue. Patent major neck vessels. Mild mucosal thickening of the maxillary sinuses. No aggressive bone lesion. IMPRESSION: The described 9 mm lesion in the right submandibular salivary gland on the previous ultrasound could not be appreciated by this CT scan. As the lesion was seen on the previous ultrasound, a follow-up by ultrasound in 2-3 months should be considered. No suspicious lymphadenopathy or definite lesion seen in the neck by this CT scan. Incidental findings as described above.
== END | disposition home or self-care (01) ==
LOC: RADCTMAIN 13:27
PROVIDERS: ATTEND Otolaryngology
DX: R22.1 Localized swelling, mass and lump, neck (principal)
CPT/HCPCS: 70491; Q9967

== ENCOUNTER → 2022-05-21 | Outpatient (CLI) | payer OTHER ==
--- NOTE | 2022-05-22 03:41 | MR ---
EXAMINATION TYPE: MR thoracic spine wo/w con DATE OF EXAM: 05/21/2022 COMPARISON: None HISTORY: Mid/low back pain, Shoulder blade pain, tingling in body CONTRAST: Standard multiplanar, multisequence MRI departmental protocol images were obtained without contrast a nd with 8 mL intravenous Gadavist gadolinium contrast. The thoracic vertebrae have normal alignment. There is a small posterior disc herniation at T3-T4 lev el and slight effacement of the anterior thoracic spinal cord. There is developmentally large spinal canal and no spinal stenosis. There is no paraspinal mass. No compression fracture. Cervical spine ap pears intact. IMPRESSION: Small posterior disc herniation centrally at or without evident impingement on the spinal canal. No f racture. No spinal stenosis.
== END | disposition home or self-care (01) ==
LOC: RADMRIMAIN 07:50
DX: M51.26 Other intervertebral disc displacement, lumbar region (principal)
CPT/HCPCS: 72157; A9585

== ENCOUNTER → 2022-05-22 | Outpatient (CLI) | payer MEDICARE, OTHER ==
--- NOTE | 2022-05-23 04:21 | MR ---
EXAMINATION TYPE: MR lumbar spine wo/w con DATE OF EXAM: 05/22/2022 COMPARISON: 03/15/2018 HISTORY: LOW BACK PAIN, UNSPECIFIED CONTRAST: Standard multiplanar, multisequence MRI departmental protocol images were obtained without contrast a nd with 7.5 mL intravenous Gadavist gadolinium contrast. The lumbar vertebrae have fairly normal alignment. There is metal artifact from surgery at the L5-S1 disc. There is developmentally adequate spinal canal and no spinal stenosis. No lumbar compression fr acture. No significant disc space narrowing. Contrast images show no pathologic enhancement. The lumbar neural foramina are fairly well-maintained. No focal bone destruction. No evidence of para spinal mass. The visualized sacroiliac joints appear intact. IMPRESSION: Previous surgery with disc prosthesis at L5-S1. No spinal stenosis. No adverse change compared to the old exam. Minimal posterior disc bulging at L4-5 and L5-S1 appears stable.
== END | disposition home or self-care (01) ==
LOC: RADMRIMAIN 08:54
DX: M51.26 Other intervertebral disc displacement, lumbar region (principal)
CPT/HCPCS: 72158; A9585

== ENCOUNTER → 2022-06-25 | Outpatient (CLI) | payer OTHER ==
--- NOTE | 2022-06-25 08:30 | CT ---
EXAMINATION TYPE: CT brain wo con CT DLP: 1144.7 mGycm, Automated exposure control for dose reduction was used. DATE OF EXAM: 06/25/2022 8:22 AM COMPARISON: None. CLINICAL INDICATION:Male, 41 years old with history of R51.9 headache, TECHNIQUE: Brain: Multiple axial CT images of the brain were obtained without IV contrast. Coronal and sagittal reformats reviewed. FINDINGS: Brain: Extra-axial spaces: No abnormal extra-axial fluid collections. Ventricular system: Within normal limits Cerebral parenchyma: No acute intraparenchymal hemorrhage or mass effect. The lindsay-white junction is well differentiated. Cerebellum: Unremarkable. Mass effect: No evidence of midline shift. Intracranial vasculature: unremarkable Soft tissues: Normal. Calvarium/osseous structures: No depressed skull fracture. Paranasal sinuses and mastoid air cells: Clear Visualized orbits: Orbital contents are intact. IMPRESSION: Unremarkable noncontrast CT of the head.
== END | disposition home or self-care (01) ==
LOC: RADCTMAIN 07:51
DX: R51.9 Headache, unspecified (principal)
CPT/HCPCS: 70450

== ENCOUNTER → 2022-11-30 | Outpatient (CLI) | payer MEDICARE ==
[2022-12-01 00:06] LABS: T4, Free (Free Thyroxine) 1.42 ng/dL (0.800-1.800)
== END | disposition home or self-care (01) ==
LOC: LABWHC1 15:32
PROVIDERS: ATTEND Nurse Practitioner Family
DX: I69.911 Memory deficit following unspecified cerebrovascular disease (principal); R41.3 Other amnesia
CPT/HCPCS: 36415; 82607; 84439; 84443; 84481

== ENCOUNTER → 2024-02-25 | Outpatient (CLI) | payer MEDICARE ==
--- NOTE | 2024-02-25 17:48 | CT ---
EXAMINATION TYPE: CT chest wo con DATE OF EXAM: 02/25/2024 COMPARISON: HISTORY: bilateral under arm/lateral thorax swelling, fatigue x [address] DLP: [address] of the chest was performed with lung and mediastinal window settings submitted. The la ck of contrast limits evaluation of the vascular, mediastinal and parenchymal structures including th e upper abdomen. LUNGS: The lungs are clear and free of infiltrate. No atelectasis. No pulmonary nodule or mass is de tected. No pleural effusion. No CT evidence of interstitial lung disease. MEDIASTINUM/NICHOLE: Thoracic aorta is of normal caliber with limited evaluation given lack of contrast . The heart is not enlarged. No evidence for mediastinal mass. No lymph nodes greater than 1cm. UPPER ABDOMEN: No significant abnormality is seen. OTHER: No significant other abnormality. IMPRESSION: 1. No distinct abnormality seen.
== END | disposition home or self-care (01) ==
LOC: RADCTMAIN 15:47
PROVIDERS: ATTEND Family Medicine
DX: R60.0 Localized edema (principal); R53.83 Other fatigue
CPT/HCPCS: 71250

== ENCOUNTER → 2024-03-03 | Outpatient (CLI) | payer MEDICARE ==
--- NOTE | 2024-03-03 14:53 | US ---
EXAMINATION TYPE: US axilla RT DATE OF EXAM: 03/03/2024 COMPARISON: NONE CLINICAL INDICATION: Male, 43 years old with history of R590 LOCALIZED ENLARGED LYMPH NODES; Swelling of bilateral axilla x 7 weeks. Hx enlarged lymph nodes bilateral neck TECHNIQUE: FINDINGS: Multiple lymph nodes noted within axilla, largest = 1.6 x 1.2 x 1.4 cm IMPRESSION: Nonspecific adenopathy. Correlate clinically appropriate follow-up advised.
--- NOTE | 2024-03-03 14:54 | US ---
EXAMINATION TYPE: US axilla LT DATE OF EXAM: 03/03/2024 COMPARISON: NONE CLINICAL INDICATION: Male, 43 years old with history of R590 LOCALIZED ENLARGED LYMPH NODES; Swelling bilateral axilla x 7 weeks, Hx enlarged lymph nodes in bilateral neck TECHNIQUE: FINDINGS: 1.6 x 1.5 x 1.9 cm, cortex = 0.36 IMPRESSION: Nonspecific adenopathy with mild cortical wall thickening. This could reflect reactive a denopathy. Correlate clinically and short-term follow-up advised.
== END | disposition home or self-care (01) ==
LOC: RADUSWWP 14:09
PROVIDERS: ATTEND Family Medicine
DX: R59.0 Localized enlarged lymph nodes (principal)

== ENCOUNTER 2024-04-25 12:46 | Emergency (ER) | payer OTHER, MEDICARE ==
--- NOTE | 2024-04-25 14:08 | ED ---
General Adult HPI - General Chief complaint: Psychiatric Symptoms Stated complaint: Suicidal Time Seen by Provider: 04/25/24 13:00 Source: patient, RN notes reviewed, old records reviewed Mode of arrival: EMS - History of Present Illness Initial comments: This is a 43-year-old male who presents to the emergency department complaining that he has been having some suicidal thoughts. Patient states he was into see his primary medical care doctor about his chronic pain and he states that he was expressing to him that he cannot live like this with all of his pain and he mentioned that he is having some suicidal thoughts with a called an ambulance and made him come to the hospital. Patient himself states he is not can to kill himself because You have and family but they centimeter so he came in he does not want to be here and he states that he would have just gone home and probably cried but not done anything to harm himself. Patient states he does not have any plan. - Related Data Home Medications Medication Instructions Recorded Confirmed Cyclobenzaprine [Flexeril] 10 mg PO HS 07/11/17 04/25/24 Morphine Sulfate ER [Ms Contin 15 mg PO BID 04/07/18 04/25/24 15Mg] DULoxetine HCL [Cymbalta] 20 mg PO HS 04/25/24 04/25/24 DULoxetine HCL [Cymbalta] 60 mg PO DAILY 04/25/24 04/25/24 Ergocalciferol (Vitamin D2) 1,250 mcg PO Q7D 04/25/24 04/25/24 [Drisdol (50,000 Iu)] Lidocaine 5% Patch [Lidoderm] 1 patch TOPICAL DAILY PRN 04/25/24 04/25/24 gemfibroziL [Lopid] 600 mg PO DAILY 04/25/24 04/25/24 oxyCODONE HCL [OxyIR] 5 mg PO TID 04/25/24 04/25/24 Allergies Allergy/AdvReac Type Severity Reaction Status Date / Time No Known Allergies Allergy Verified 04/25/24 13:50 Review of Systems ROS Statement: Those systems with pertinent positive or pertinent negative responses have been documented in the HPI. ROS Other: All systems not noted in ROS Statement are negative. Past Medical History Past Medical History: Musculoskeletal Disorder, Seizure Disorder Additional Past Medical History / Comment(s): Post traumatic stress disorder, STATES SEIZURES ARE BEHIND THE EYES -NO MEDS FOR THIS , DDD-BACK PAIN. Back surgery L5-S1 spacer and fusion, continues to have pain involving lowwer back and both legs. History of Any Multi-Drug Resistant Organisms: None Reported Past Surgical History: Back Surgery Additional Past Surgical History / Comment(s): PAIN CLINIC PROCEDURES 2013. LUMBAR MYELOGRAM 2017. R lymphnode removal 2023 Past Anesthesia/Blood Transfusion Reactions: No Reported Reaction Past Psychological History: PTSD Smoking Status: Current every day smoker Past Alcohol Use History: None Reported Past Drug Use History: None Reported - Past Family History Mother Family Medical History: Cancer General Exam - General Exam Comments Initial Comments: GENERAL: Patient is well-developed and well-nourished. Patient is nontoxic and well- hydrated and is in no acute distress. ENT: Neck is soft and supple. No significant lymphadenopathy is noted. Oropharynx is clear. Moist mucous membranes. Neck has full range of motion without eliciting any pain. EYES: The sclera were anicteric and conjunctiva were pink and moist. Extraocular movements were intact and pupils were equal round and reactive to light. Eyelids were unremarkable. PULMONARY: Unlabored respirations. Good breath sounds bilaterally. No audible rales rhonchi or wheezing was noted. CARDIOVASCULAR: There is a regular rate and rhythm without any murmurs gallops or rubs. ABDOMEN: Soft and nontender with normal bowel sounds. SKIN: Skin is clear with no lesions or rashes and otherwise unremarkable. NEUROLOGIC: Patient is alert and oriented x3. Cranial nerves II through XII are grossly intact. Motor and sensory are also intact. Normal speech, volume and content. Symmetrical smile. MUSCULOSKELETAL: Normal extremities with adequate strength and full range of motion. LYMPHATICS: No significant lymphadenopathy is noted PSYCHIATRIC: Patient states that he is having suicidal ideations occasionally but does not believe he will follow through and has no plan. Patient states the only reason he is even having those thoughts is because he is in so much chronic pain. Patient states he has all the money he needs as a beautiful and family and definitely does not want hurt himself. Course Vital Signs 04/25/24 12:49 Temperature 98 F Pulse Rate 72 Respiratory 16 Rate Blood Pressure 160/92 O2 Sat by Pulse 98 Oximetry Medical Decision Making - Medical Decision Making Was pt. sent in by a medical professional or institution (Dr., PA, DIRECTOR OF QUANTITATIVE RESEARCH, urgent care, hospital, or fci...) When possible be specific @ -Patient was sent in by his primary medical care doctor Did you speak to anyone other than the patient for history (EMS, parent, family, police, friend...)? What history was obtained from this source @ -No Did you review nursing and triage notes (agree or disagree)? Why? @ -I reviewed and agree with nursing and triage notes Were old charts reviewed (outside hosp., previous admission, EMS record, old EKG, old radiological studies, urgent care reports/EKG's, fci records)? Report findings @ -No old charts were reviewed Differential Diagnosis (chest pain, altered mental status, abdominal pain women, abdominal pain men, vaginal bleeding, weakness, fever, dyspnea, syncope, headache, dizziness, GI bleed, back pain, seizure, CVA, palpatations, mental health, musculoskeletal)? @ -Differential Mental Health Depression, anxiety, bipolar, psychosis, schizophrenia, borderline personality, situational depression, adjustment disorder, behavioral disorder, brain tumor, malingering, substance abuse, encephalopathy, medication reaction, dementia, hypothyroidism, degenerative neurologic disorder, lupus.... This is not meant to be all-inclusive list EKG interpreted by me (3pts min.). @ -As above X-rays interpreted by me (1pt min.). @ -None done CT interpreted by me (1pt min.). @ -None done U/S interpreted by me (1pt. min.). @ -None done What testing was considered but not performed or refused? (CT, X-rays, U/S, labs)? Why? @ -None What meds were considered but not given or refused? Why? @ -None Did you discuss the management of the patient with other professionals (professionals i.e. JEFF Lange, DIRECTOR OF QUANTITATIVE RESEARCH, lab, RT, psych nurse, social service technician, wing coverer, teacher, customs and immigration officer, case technician)? Give summary @ -EPS evaluated the patient and spoke with EPS after he had spoken with the psychiatrist and it was agreed to that the patient can be discharged home with a safety plan and he was given a safety plan Was smoking cessation discussed for >3mins.? @ -No Was critical care preformed (if so, how long)? @ -No Were there social determinants of health that impacted care today? How? (Homelessness, low income, unemployed, alcoholism, drug addiction, transportation, low edu. Level, literacy, decrease access to med. care, long-term, rehab)? @ -No Was there de-escalation of care discussed even if they declined (Discuss DNR or withdrawal of care, Hospice)? DNR status @ -No What co-morbidities impacted this encounter? (DM, HTN, Smoking, COPD, CAD, Cancer, CVA, ARF, Chemo, Hep., AIDS, mental health diagnosis, sleep apnea, morbid obesity)? @ -None Was patient admitted / discharged? Hospital course, mention meds given and route, prescriptions, significant lab abnormalities, going to OR and other pertinent info. @ -Patient will be discharged home with a safety plan he agrees that he has these thoughts occasionally but states he is not planning on acting on them and does not think he will Undiagnosed new problem with uncertain prognosis? @ -No Drug Therapy requiring intensive monitoring for toxicity (Heparin, Nitro, Insulin, Cardizem)? @ -No Were any procedures done? @ -No Diagnosis/symptom? @ -Situational depression Acute, or Chronic, or Acute on Chronic? @ -Acute Uncomplicated (without systemic symptoms) or Complicated (systemic symptoms)? @ -Complicated Side effects of treatment? @ -No Exacerbation, Progression, or Severe Exacerbation? @ -No Poses a threat to life or bodily function? How? (Chest pain, [place], [place], pneumonia, PE, COPD, DKA, ARF, appy, cholecystitis, CVA, Diverticulitis, Homicidal, Suicidal, threat to staff... and all critical care pts) @ -No - Lab Data Lab Results 04/25/24 Range/Units 13:59 Urine Opiates Screen Detected H (NotDetected) Ur Oxycodone Screen Detected H (NotDetected) Urine Methadone Screen Not Detected (NotDetected) Ur Barbiturates Screen Not Detected (NotDetected) U Tricyclic Antidepress Detected H (NotDetected) Ur Phencyclidine Scrn Not Detected (NotDetected) Ur Amphetamines Screen Not Detected (NotDetected) U Methamphetamines Scrn Not Detected (NotDetected) U Benzodiazepines Scrn Not Detected (NotDetected) Urine Cocaine Screen Not Detected (NotDetected) U Marijuana (THC) Screen Detected H (NotDetected) Disposition Clinical Impression: Situational depression Disposition: HOME SELF-CARE Condition: Good Instructions (If sedation given, give patient instructions): Depression (ED), Suicide Prevention (ED) Is patient prescribed a controlled substance at d/c from ED?: No Referrals: [facility],Clinic [Primary Care Provider] - 1-2 days Time of Disposition: 15:40
[2024-04-25 14:44] LABS: Amphetamine Screen,Urine Not Detected (NotDetected); Benzodiazepines Screen,Urine Not Detected (NotDetected); Cocaine Screen,Urine Not Detected (NotDetected); Opiate Screen,Urine Detected (NotDetected); Phencyclidine Screen,Urine Not Detected (NotDetected); Tricyclic Antidepressant,Urine Detected (NotDetected); Urn Cannabinoid Scrn Detected (NotDetected)
[2024-04-25 14:45] LABS: Barbiturate Screen,Urine Not Detected (NotDetected); Methadone Screen, Urine Not Detected (NotDetected); Oxycodone Screen, Urine Detected (NotDetected)
[2024-04-25 16:09] VITALS: BP 154/88; PULSE 76; RESP 18; TEMP 98.1
== END 2024-04-25 16:07 | disposition home or self-care (01) ==
LOC: EC 12:46
DX: F43.21 Adjustment disorder with depressed mood (principal); F17.200 Nicotine dependence, unspecified, uncomplicated
CPT/HCPCS: 80306; 82075; 99285

== ENCOUNTER → 2024-05-09 | Outpatient (CLI) | payer MEDICARE ==
--- NOTE | 2024-05-12 14:14 | CT ---
EXAMINATION TYPE: CT abdomen pelvis w con DATE OF EXAM: 05/09/2024 COMPARISON: None INDICATION: swollen lymph nodes DLP: 695.3 mGycm, Automated exposure control for dose reduction was used. CONTRAST: 100 mL of Isovue 300. Study performed with Oral Contrast TECHNIQUE: Axial images were obtained from above the diaphragm to the pubic rami in the axial plane a t 5 mm thick sections. Reconstructed images are reviewed on the computer in the coronal plane. FINDINGS: Limited CT sections are obtained the lung bases. The lung bases are clear. Retrocrural space appear s normal. CT ABDOMEN: Some shotty lymphadenopathies in the periaortic region. A 1.0 cm present. No additional e nlarged lymphadenopathy. Liver: Normal Spleen: Normal Pancreas: Normal Adrenal glands: The adrenal glands are normal. Gallbladder: Normal Kidneys: No masses are evident. No hydronephrosis is present. No cysts are present. Delayed images were obtained through the kidneys, which remain unremarkable. Aorta: Vascular calcification is within the aorta. Inferior vena cava: Normal. CT PELVIS: Shoddy lymphadenopathies region. Enlarged lymphadenopathy is not identified. Loops of bowel within the abdomen and pelvis are normal. There are loops of bowel which are incom pletely distended or lack oral contrast limiting their evaluation. Appendix: Normal as visualized. Urinary bladder: Normal. Genitourinary structures: Prostate is normal Osseous structures: No suspicious lytic or sclerotic lesions. IMPRESSION: 1. There is a 1 cm periaortic region. A few additional shotty nodes are present. Suspicious adenopat hy is not otherwise
== END | disposition home or self-care (01) ==
LOC: RADCTMAIN 15:58
PROVIDERS: ATTEND Internal Medicine Hematology & Oncology
DX: R59.0 Localized enlarged lymph nodes (principal); E78.5 Hyperlipidemia, unspecified; Z71.3 Dietary counseling and surveillance
CPT/HCPCS: 74177; Q9967

== ENCOUNTER → 2024-06-05 | Outpatient (CLI) | payer MEDICARE ==
--- NOTE | 2024-06-05 19:38 | US ---
EXAMINATION TYPE: US axilla BILAT DATE OF EXAM: 06/05/2024 COMPARISON: US 03/03/24 CLINICAL INDICATION: Male, 43 years old with history of Z71.3,E78.5,R59.0; bilat fullness and sorenes s TECHNIQUE: several images taken of bilateral axillas FINDINGS: very small lymph nodes wnl on the right side. Prominent Left lymph node again seen measuring 1.4x1.7x1.5cm with a 3mm cortex monitoring is recomm ended. Findings appear essentially stable from comparison. Significant increase is not evident. IMPRESSION: Somewhat prominent lymph node with a 0.3 cm cortex. Short-term follow-up recommended.
== END | disposition home or self-care (01) ==
LOC: RADUSWWP 15:41
PROVIDERS: ATTEND Internal Medicine Hematology & Oncology
DX: R59.0 Localized enlarged lymph nodes (principal); E78.5 Hyperlipidemia, unspecified; Z71.3 Dietary counseling and surveillance
CPT/HCPCS: 76882

== ENCOUNTER → 2024-11-01 | Outpatient (CLI) | payer MEDICARE ==
--- NOTE | 2024-11-02 08:50 | NM ---
EXAMINATION TYPE: NM bone scan whole body DATE OF EXAM: 11/01/2024 COMPARISON: NONE HISTORY: Disorder of bone Delayed whole-body scanning was performed following the injection of 17.0 mCi Tc 99m MDP. Images wer e acquired 3 hours post injection. FINDINGS: There is some focal increased uptake within the mid to inferior left cervical spine. Couple tiny area s of uptake may be within the posterior left upper and mid cervical spine. Findings are nonspecific b ut can be related to degenerative changes. Increased signal at the bilateral hips can be related to degenerative change. Some mild uptake at the bilateral feet can be related to degenerative change. IMPRESSION: 1. Degenerative type changes most focal in the posterior left cervical spine region. This may be dege nerative in nature. Plain film correlation can be performed as clinically indicated. [facility], , 11/02/2024 8:48 AM
== END | disposition home or self-care (01) ==
LOC: RADNMMAIN 10:58
PROVIDERS: ATTEND Family Medicine
DX: M89.8X9 Other specified disorders of bone, unspecified site (principal); M47.812 Spondylosis without myelopathy or radiculopathy, cervical region
CPT/HCPCS: 78306; A9503

== ENCOUNTER → 2024-11-27 | Outpatient (CLI) | payer OTHER ==
--- NOTE | 2024-11-27 12:37 | CT ---
EXAMINATION TYPE: CT chest w con DATE OF EXAM: 11/27/2024 COMPARISON: Prior chest CT 04/10/2024 HISTORY: ENLARGED LYMPH NODES IN ARM PITS. CT DLP: 370.1 mGycm. Automated Exposure Control for Dose Reduction was Utilized. TECHNIQUE: CT scan of the thorax is performed following with IV Contrast, patient injected with 100m l mL of Isovue 300. FINDINGS: LUNGS: Mild left basilar linear scarring. No suspicious focal consolidation. No concerning pulmonary masses. There is no pleural effusion or pneumothorax seen. The tracheobronchial tree is patent. MEDIASTINUM: There are no greater than 1 cm hilar or mediastinal lymph nodes. No cardiomegaly or pe ricardial effusion is seen. OTHER: No obvious enlarged lymph nodes in the bilateral axilla. IMPRESSION: No suspicious findings. No significant change from most recent prior CT. [facility], , 11/27/2024 12:35 PM
== END | disposition home or self-care (01) ==
LOC: RADCTMAIN 11:02
PROVIDERS: ATTEND Family Medicine
DX: R59.0 Localized enlarged lymph nodes (principal)
CPT/HCPCS: 71260; Q9967

== ENCOUNTER 2025-06-22 10:56 | Day surgery (SDC) | payer OTHER ==
[2025-06-20 10:50] VITALS: BMI 25.8
[2025-06-22] MEDS ORDERED: LIDOCAINE 1% (10MG/ML) FOR IV START INTRADERMA PRN (11:37)
[2025-06-22 11:48] VITALS: RESP 16; TEMP 97
[2025-06-22] MEDS: IV FLUID CONTINUATION 1,000 ML IV ONE (11:52)
[2025-06-22] MEDS: LACTATED RINGERS 1,000 ML IV SCH (11:53)
[2025-06-22] MEDS ORDERED: PROPOFOL 10 MG/ML 20 ML VIAL IV ONE (12:51)
[2025-06-22] MEDS ORDERED: LIDOCAINE 1% INJ 10MG/ML (20 ML MDV) ONE (12:51)
[2025-06-22 13:33] VITALS: BP 128/79; PULSE 56
--- NOTE | 2025-06-22 13:35 | P.PCN ---
Date of Procedure: 06/22/25 Procedure(s) Performed: BRIEF HISTORY: Patient is a 44-year-old pleasant white male scheduled for an elective colonoscopy as a part of screening for colon cancer. PROCEDURE PERFORMED: Colonoscopy. PREOPERATIVE DIAGNOSIS: Screening for colon cancer. IV sedation per Anesthesia. PROCEDURE: After informed consent was obtained, the patient, was brought into the endoscopy unit. IV sedation was administered by Anesthesia under continuous monitoring. Digital rectal examination was normal. Initially the Olympus CF-160 flexible video colonoscope was then inserted in the rectum, gradually advanced into the cecum without any difficulty. Careful examination was performed as the scope was gradually being withdrawn. Ileocecal valve and the appendiceal orifice were visualized and appeared normal. Prep was poor in some areas of the colon.. Mucosa of the cecum, ascending colon, transverse colon, descending colon, sigmoid colon, and rectum appeared normal. Retroflexion was performed in the rectum and no lesions were seen. The patient tolerated the procedure well. IMPRESSION: Normal-appearing colon from rectum to cecum with no evidence of colorectal neoplasia. RECOMMENDATIONS: Findings of this examination were discussed with the patient as well as his family. He was advised to have repeat screening colonoscopy in 10 years.
== END 2025-06-22 13:44 | disposition home or self-care (01) ==
LOC: ORWHC2ENDO 10:56
PROVIDERS: ATTEND Internal Medicine Gastroenterology
DX: Z12.11 Encounter for screening for malignant neoplasm of colon (principal)
CPT/HCPCS: 45378; J2003; J2704